=== PATIENT | male | born 1975 | race Caucasian/White ===

== ENCOUNTER 2020-11-23 20:01 | Inpatient (IN) | payer BC ==
[2020-11-23] MEDS ORDERED: ACETAMINOPHEN TAB 500 MG TAB PO STA (20:23)
[2020-11-23] MEDS: SODIUM CHLORIDE 0.9% 500 ML 500 ML IV SCH ×2 (20:33→21:15)
--- NOTE | 2020-11-23 20:33 | ED ---
SOB HPI - General Chief Complaint: Shortness of Breath Stated Complaint: pneumonia-sent by [facility] Time Seen by Provider: 11/23/20 20:08 Source: patient Mode of arrival: ambulatory Limitations: no limitations - History of Present Illness Initial Comments: Is a 45-year-old male with no past medical history who presents emergency department for fevers and shortness of breath. Patient states that he started having some symptoms of upper respiratory infection such as sore throat and headache on April 10. He states that approximately one week later he developed some shortness of breath. He is also had intermittent episodes of nausea, vomiting, and diarrhea. He went to the [facility] one week ago who checked him for cold it with a rapid test and also a PCR. He states that both of these were negative. He was started on steroids at that time. He states that over the last 2 days he's noticed fevers at home and continue shortness of breath. He went back to [facility] who did an x-ray he was told he had pneumonia and he was directed to the emergency department. The patient admits to a little bit of dysuria and frequency. He denies any abdominal pain. He admits to mild headache and neck discomfort however no stiffness. He states he also has backaches intermittently. He denies any rashes. No other acute complaints. - Related Data Home Medications Medication Instructions Recorded Confirmed Albuterol Inhaler [Ventolin Hfa 1 - 2 puff INHALATION RT-Q4H PRN 11/23/20 11/23/20 Inhaler] methylPREDNISolone [Medrol Dose See Taper PO DAILY 11/23/20 11/23/20 Pack] Allergies Allergy/AdvReac Type Severity Reaction Status Date / Time Milk Containing Products Allergy Nausea & Verified 11/23/20 21:04 [Dairy] Vomiting Review of Systems ROS Statement: Those systems with pertinent positive or pertinent negative responses have been documented in the HPI. ROS Other: All systems not noted in ROS Statement are negative. Past Medical History Past Medical History: No Reported History History of Any Multi-Drug Resistant Organisms: None Reported Past Surgical History: No Surgical Hx Reported Past Psychological History: No Psychological Hx Reported Smoking Status: Never smoker Past Alcohol Use History: None Reported Past Drug Use History: None Reported General Exam - General Exam Comments Initial Comments: Constitutional: Awake alert Appears comfortable Head: Normocephalic atraumatic Eyes: no conjunctival injection No scleral icterus EOMI Neck: No JVD Supple Heart: Regular rate rhythm normal S1-S2 no murmurs Lungs: Clear to auscultation bilaterally No wheezing No rales, diminished at the bases Abdomen: Soft nondistended nontender Extremities: Non edematous DP pulses intact Radial pulses intact Neuro: A&Ox3 No focal neurologic deficits Psych: Appropriate mood and affect Limitations: no limitations Course Vital Signs 11/23/20 11/23/20 11/23/20 20:02 20:15 21:06 Temperature 102.3 F H Pulse Rate 99 85 Respiratory 20 20 18 Rate Blood Pressure 120/74 116/82 O2 Sat by Pulse 99 Oximetry 11/23/20 11/23/20 21:42 22:09 Temperature 99.9 F H Pulse Rate 67 Respiratory 16 Rate Blood Pressure 108/68 O2 Sat by Pulse 98 Oximetry - Reevaluation(s) Reevaluation #1: EKG showing normal sinus rhythm with a rate of 92. This no abnormal ST 7 changes or T-wave inversions. QTC is 417. Other intervals normal. No ectopy. 11/23/20 20:34 Medical Decision Making - Medical Decision Making Is a 45-year-old male who presents emergency department for worsening dyspnea and fever. Patient was febrile on arrival. The patient was given 1 L of IV fluids and Tylenol. He had a full workup performed that did show some lymphopenia, elevation his LDH and CRP. D-dimer was elevated and thus a CT angiography was performed that did not show evidence for PE however did show bilateral groundglass opacities consistent with pneumonia. The patient did have a negative covert swab about one week ago however I did re-swab him for Covid. I started him on steroids and antibiotics. Going to admit the patient to the hospital due to evidence for sepsis from pneumonia. Repeat lactic will be performed. Attempted to get ahold of Dr. Potter and unable to. Spoke with Dr. Mann who accepts the admission. - Lab Data Result diagrams: 11/23/20 20:30 11/23/20 20:30 Lab Results 11/23/20 11/23/20 11/23/20 Range/Units 20:30 20:30 20:30 WBC 12.6 H (3.8-10.6) k/uL RBC 4.95 (4.30-5.90) m/uL Hgb 14.5 (13.0-17.5) gm/dL Hct 40.5 (39.0-53.0) % MCV 81.8 (80.0-100.0) fL MCH 29.4 (25.0-35.0) pg MCHC 35.9 (31.0-37.0) g/dL RDW 12.3 (11.5-15.5) % Plt Count 306 (150-450) k/uL MPV 8.1 Neutrophils % 87 % Lymphocytes % 2 % Monocytes % 7 % Eosinophils % 1 % Basophils % 3 % Neutrophils # 10.9 H (1.3-7.7) k/uL Lymphocytes # 0.3 L (1.0-4.8) k/uL Monocytes # 0.9 (0-1.0) k/uL Eosinophils # 0.1 (0-0.7) k/uL Basophils # 0.4 H (0-0.2) k/uL PT 10.9 (9.0-12.0) sec INR 1.0 (<1.2) APTT 26.0 (22.0-30.0) sec D-Dimer 1.77 H (<0.60) mg/L FEU Sodium 128 L (137-145) mmol/L Potassium 4.2 (3.5-5.1) mmol/L Chloride 96 L (98-107) mmol/L Carbon Dioxide 23 (22-30) mmol/L Anion Gap 9 mmol/L BUN 13 (9-20) mg/dL Creatinine 0.80 (0.66-1.25) mg/dL Est GFR (CKD-EPI)AfAm >90 (>60 ml/min/1.73 sqM) Est GFR (CKD-EPI)NonAf >90 (>60 ml/min/1.73 sqM) Glucose 135 H (74-99) mg/dL Plasma Lactic Acid Bryon (0.7-2.0) mmol/L Calcium 8.5 (8.4-10.2) mg/dL Total Bilirubin 0.9 (0.2-1.3) mg/dL AST 38 (17-59) U/L ALT 27 (4-49) U/L Alkaline Phosphatase 50 (38-126) U/L Lactate Dehydrogenase 658 H (313-618) U/L C-Reactive Protein 52.4 H (<10.0) mg/L Total Protein 6.7 (6.3-8.2) g/dL Albumin 3.8 (3.5-5.0) g/dL 11/23/20 Range/Units 20:30 WBC (3.8-10.6) k/uL RBC (4.30-5.90) m/uL Hgb (13.0-17.5) gm/dL Hct (39.0-53.0) % MCV (80.0-100.0) fL MCH (25.0-35.0) pg MCHC (31.0-37.0) g/dL RDW (11.5-15.5) % Plt Count (150-450) k/uL MPV Neutrophils % % Lymphocytes % % Monocytes % % Eosinophils % % Basophils % % Neutrophils # (1.3-7.7) k/uL Lymphocytes # (1.0-4.8) k/uL Monocytes # (0-1.0) k/uL Eosinophils # (0-0.7) k/uL Basophils # (0-0.2) k/uL PT (9.0-12.0) sec INR (<1.2) APTT (22.0-30.0) sec D-Dimer (<0.60) mg/L FEU Sodium (137-145) mmol/L Potassium (3.5-5.1) mmol/L Chloride (98-107) mmol/L Carbon Dioxide (22-30) mmol/L Anion Gap mmol/L BUN (9-20) mg/dL Creatinine (0.66-1.25) mg/dL Est GFR (CKD-EPI)AfAm (>60 ml/min/1.73 sqM) Est GFR (CKD-EPI)NonAf (>60 ml/min/1.73 sqM) Glucose (74-99) mg/dL Plasma Lactic Acid Bryon 2.6 H* (0.7-2.0) mmol/L Calcium (8.4-10.2) mg/dL Total Bilirubin (0.2-1.3) mg/dL AST (17-59) U/L ALT (4-49) U/L Alkaline Phosphatase (38-126) U/L Lactate Dehydrogenase (313-618) U/L C-Reactive Protein (<10.0) mg/L Total Protein (6.3-8.2) g/dL Albumin (3.5-5.0) g/dL Disposition Clinical Impression: Sepsis, Pneumonia Disposition: ADMITTED IP TO THIS HOSP Condition: Stable Referrals: None,Stated [Primary Care Provider] - 1-2 days Decision to Admit Reason: Admit from [facility]
[2020-11-23 20:51] LABS: Basophils # (A) 0.4 k/uL (0-0.2); Basophils % (A) 3 %; Eosinophils # (A) 0.1 k/uL (0-0.7); Eosinophils % (A) 1 %; HCT 40.5 % (39.0-53.0); HGB 14.5 gm/dL (13.0-17.5); Lymphocytes # (A) 0.3 k/uL (1.0-4.8); Lymphocytes % (A) 2 %; MCH 29.4 pg (25.0-35.0); MCHC 35.9 g/dL (31.0-37.0); MCV 81.8 fL (80.0-100.0); Mean Platelet Volume 8.1; Monocytes # (A) 0.9 k/uL (0-1.0); Monocytes % (A) 7 %; Neutrophils # (A) 10.9 k/uL (1.3-7.7); Neutrophils % (A) 87 %; Platelet Count 306 k/uL (150-450); RBC 4.95 m/uL (4.30-5.90); RDW 12.3 % (11.5-15.5); WBC 12.6 k/uL (3.8-10.6)
--- NOTE | 2020-11-23 21:05 | XR ---
EXAMINATION TYPE: XR chest 1V portable DATE OF EXAM: 11/23/2020 COMPARISON: Today HISTORY: Fever TECHNIQUE: 2 views portable FINDINGS: Heart and mediastinum are normal. Lungs are clear of consolidation. There are no hilar mass es. There are are chest leads. Bony thorax is intact. There is no sign of pleural effusion. IMPRESSION: No active cardiopulmonary disease. Minimal nodular densities in the left upper lobe proba adonis from granulomatous disease. No change compared to outside exam.
[2020-11-23 21:08] LABS: ALT 27 U/L (4-49); AST 38 U/L (17-59); African American GFR (CKD) >90 (>60 ml/min/1.73 sqM); Albumin 3.8 g/dL (3.5-5.0); Alkaline Phosphatase 50 U/L (38-126); Anion Gap 9 mmol/L; Blood Urea Nitrogen 13 mg/dL (9-20); C Reactive Protein 52.4 mg/L (<10.0); Calcium 8.5 mg/dL (8.4-10.2); Carbon Dioxide 23 mmol/L (22-30); Chloride 96 mmol/L (98-107); Glucose 135 mg/dL (74-99); LDH 658 U/L (313-618); Non-African American GFR(CKD) >90 (>60 ml/min/1.73 sqM); Potassium 4.2 mmol/L (3.5-5.1); Sodium 128 mmol/L (137-145); Total Bilirubin 0.9 mg/dL (0.2-1.3); Total Protein 6.7 g/dL (6.3-8.2)
[2020-11-23 21:10] LABS: Prothrombin Time 10.9 sec (9.0-12.0)
[2020-11-23 21:15] LABS: D-Dimer 1.77 mg/L FEU (<0.60)
[2020-11-23] MEDS ORDERED: DEXAMETHASONE SOD PHOSPHATE 10 MG/ML 1 ML VIAL IV STA (21:38)
--- NOTE | 2020-11-23 21:47 | CT ---
EXAMINATION TYPE: CT angio chest DATE OF EXAM: 11/23/2020 COMPARISON: None HISTORY: Dyspnea and elevated d-dimer. CT DLP: 498 mGycm Automated exposure control for dose reduction was used. CONTRAST: Performed with IV Contrast, patient injected with 84ml mL of Isovue 370. There are 3-D post processed images. There is some patchy groundglass interstitial infiltrate in the mid and lower lung rojas. There is n o mediastinal adenopathy. There are no hilar masses. There are a few bilateral bronchial lymph nodes that measure less than 1 cm. Thoracic aorta is intact. There is no evidence of aneurysm or dissection . There is no evidence of filling defect in the pulmonary arteries. The thoracic spine is intact. Dow um is intact. IMPRESSION: No evidence of pulmonary embolism. Patchy groundglass pulmonary interstitial infiltrates consistent w ith pneumonia.
[2020-11-23] MEDS ORDERED: AZITHROMYCIN 500 MG in SODIUM CHLORIDE 0.9% 250 ML IVPB ONE (22:00)
[2020-11-23] MEDS ORDERED: cefTRIAXone IN SWFI 1,000 MG/10 ML SYRINGE IVP ONE (22:00)
[2020-11-23] MEDS: SODIUM CHLORIDE 0.9% 1,000 ML IV SCH (22:15)
[2020-11-23] MEDS ORDERED: NALOXONE 0.4 MG/ML 1 ML VIAL IV PRN (22:32)
[2020-11-23] MEDS ORDERED: ALBUTEROL HFA INHALER INHALATION PRN (23:59)
[2020-11-24] MEDS ORDERED: ACETAMINOPHEN TAB 325 MG TAB PO PRN
--- NOTE | 2020-11-24 03:40 | P.HPIM ---
History of Present Illness H&P Date: 11/23/20 Chief Complaint: shortness of breath 45 year old male with no significant past medical history patient comes in due to worsening shortness of breath and fever. patient reports symptoms starting 2 weeks ago , as sore throat and body aches, he suspected viral illness, eventually was tested for COVID but returned negative. he continued to experience those symptoms along with GI upset and occasional diarrhea and vomiting, his and kids are feeling fine though. except for his youngest 7 months old who experienced low grade fever for 1 day. The urgent care clinic did give him medrol dose pack that he has only 1 pill left. Then about 7 days into his symptoms he started experiencing shortness of breath, which was progressive, associated with productive cough, and eventually over past two days, he was having fevers. he went back to the urgent care, and was to ld to go to the hospital due to suspected pneumonia in our ED, he was found to have elevated D dimer, LDH and CRP. leukocytosis , and CXR was unremarkable CTA of chest performed due to elevated d dimer, and was found to have bilateral patchy ground glass appearance over mid and lower lung , no acute PE Review of Systems Pertinent positives as noted in HPI. All other systems were reviewed and are negative Past Medical History Past Medical History: No Reported History History of Any Multi-Drug Resistant Organisms: None Reported Past Surgical History: No Surgical Hx Reported Past Anesthesia/Blood Transfusion Reactions: No Reported Reaction Past Psychological History: No Psychological Hx Reported Smoking Status: Never smoker Past Alcohol Use History: None Reported Past Drug Use History: None Reported - Past Family History family Family Medical History: No Reported History Medications and Allergies Home Medications Medication Instructions Recorded Confirmed Type Albuterol Inhaler [Ventolin Hfa 1 - 2 puff INHALATION RT-Q4H PRN 11/23/20 11/23/20 History Inhaler] methylPREDNISolone [Medrol Dose See Taper PO DAILY 11/23/20 11/23/20 History Pack] Allergies Allergy/AdvReac Type Severity Reaction Status Date / Time Milk Containing Products Allergy Nausea & Verified 11/23/20 21:04 [Dairy] Vomiting Physical Exam Vitals: Vital Signs Temp Pulse Pulse Resp BP BP Pulse Ox 11/24/20 02:00 98.3 F 71 18 107/71 96 11/23/20 22:48 75 18 100/65 96 11/23/20 22:09 67 16 108/68 98 11/23/20 21:42 99.9 F H 11/23/20 21:06 85 18 116/82 11/23/20 20:15 20 11/23/20 20:02 102.3 F H 99 20 120/74 99 Intake and Output 11/23/20 11/23/20 11/24/20 14:59 22:59 06:59 Other: Voiding Method Toilet Weight 102.058 kg 102.058 kg Constitutional: No acute distress, conversant, pleasant Eyes: Anicteric sclerae, moist conjunctiva, Pupils equal round reactive to light ENMT: NC/AT Oropharynx clear, no erythema, or exudates Neck: Supple, FROM, no masses, or JVD No carotid bruits No thyromegaly Lungs: Clear to auscultation Clear to percussion Normal respiratory effort, no accessory muscle use Cardiovascular: Heart regular in rate and rhythm, No murmurs, gallops, or rubs No peripheral edema Abdominal: Soft Nontender, no guarding, rebound or rigidity Abdomen moving with respiration Normoactive bowel sounds No hepatomegaly, No splenomegaly No palpable mass No abdominal wall hernia noted Skin: Normal temperature, tone, texture, turgor No induration No subcutaneous nodules No rash, lesions No ulcers Extremities: No digital cyanosis No clubbing Pedal pulses intact and symmetrical Radial pulses intact and symmetrical No calf tenderness Psychiatric: Alert and oriented to person, place and time Appropriate affect fair judgement Neuro Muscles Strength 5/5 in all 4 extremities Sensation to light touch grossly present throughout Cranial nerves II-XII grossly intact No focal sensory deficits Lymphatics: no palpable cervical or supraclavicular , or inguinal lymph nodes Results CBC & Chem 7: 11/23/20 20:30 11/23/20 20:30 Labs: Abnormal Lab Results - Last 24 Hours (Table) 11/23/20 11/23/20 11/23/20 Range/Units 20:30 20:30 20:30 WBC 12.6 H (3.8-10.6) k/uL Neutrophils # 10.9 H (1.3-7.7) k/uL Lymphocytes # 0.3 L (1.0-4.8) k/uL Basophils # 0.4 H (0-0.2) k/uL D-Dimer 1.77 H (<0.60) mg/L FEU Sodium 128 L (137-145) mmol/L Chloride 96 L (98-107) mmol/L Glucose 135 H (74-99) mg/dL Plasma Lactic Acid Bryon (0.7-2.0) mmol/L Lactate Dehydrogenase 658 H (313-618) U/L C-Reactive Protein 52.4 H (<10.0) mg/L Coronavirus (PCR) (Not Detectd) 11/23/20 11/23/20 Range/Units 20:30 21:48 WBC (3.8-10.6) k/uL Neutrophils # (1.3-7.7) k/uL Lymphocytes # (1.0-4.8) k/uL Basophils # (0-0.2) k/uL D-Dimer (<0.60) mg/L FEU Sodium (137-145) mmol/L Chloride (98-107) mmol/L Glucose (74-99) mg/dL Plasma Lactic Acid Bryon 2.6 H* (0.7-2.0) mmol/L Lactate Dehydrogenase (313-618) U/L C-Reactive Protein (<10.0) mg/L Coronavirus (PCR) Detected A (Not Detectd) Thrombosis Risk Factor Assmnt - Choose All That Apply Each Factor Represents 1 point: Age 41-60 years, Obesity (BMI >25) Thrombosis Risk Factor Assessment Total Risk Factor Score: 2 Thrombosis Risk Factor Assessment Level: Low Risk Assessment and Plan Assessment: sepsis COVID pneumonitis shortness of breath lactic acidosis hyponatremia 2/2 dehydration plan IVF hydration with normal saline supportive care tylenol for fever, body aches follow up lactic acid follow up BMP supplemental oxygen as needed zinc, vitamin D patient received one dose of antibiotics in the ED, and one time dose of decadrone in the ED PRN inhaler CODE STATUS:full code DVT prophylaxis: heaprin sc tid Discussed with: Patient, ER, RN Anticipated length of stay > than [address]: home A total of 70 minutes was spent on the care of this complex patient more than 50% of the time was spent in counseling and care coordination.
[2020-11-24] MEDS: ZINC SULFATE 220 MG CAP PO SCH (08:33)
[2020-11-24] MEDS: CHOLECALCIFEROL 10 MCG (400 IU) TABLET PO SCH (08:33)
[2020-11-24 09:03] LABS: Ferritin 466.6 ng/mL (22.0-322.0)
[2020-11-24 09:22] LABS: African American GFR (CKD) 125.9 (60.0-200.0); Anion Gap 7.6 mmol/L (4.00-12.00); BUN/Creat Ratio 16.25 Ratio (12.00-20.00); Calcium 8.3 mg/dL (8.7-10.3); Carbon Dioxide 27.4 mmol/L (21.6-31.8); Non-African American GFR(CKD) 108.6 (60.0-200.0); Potassium 4.9 mmol/L (3.5-5.5)
[2020-11-24] MEDS ORDERED: IOPAMIDOL CONTRAST (ORAL USE) VIAL PO PRN (10:16)
[2020-11-24] MEDS ORDERED: ENOXAPARIN 40 MG/0.4 ML SYRINGE SQ STA (10:17)
--- NOTE | 2020-11-24 10:31 | P.PN ---
<Gabriel Glover - Last Filed: 11/24/20 10:39> Subjective Progress Note Date: 11/24/20 Principal diagnosis: Acute Respiratory Failure with Hypoxia secondary to COVID 19 virus infection with pneumonitis History of presenting illness: Patient is a 45-year-old male with no known past medical history who presented to [facility] on 11/23/20 for reports of worsening shortness of breath and fever beginning approximately 2 weeks ago and progressively worsening. Patient was seen and fully evaluated in the emergency department where he was found to test positive for Covid 19 virus infection and have an elevated d-dimer of 1.77, elevated LDH of 658, CRP 52.4, and WBC count of 12.8. X-ray was completed showing no acute cardiopulmonary process. CTA was obtained negative for acute PE, but positive for bilateral patchy groundglass opacities over mid and lower lung. 11/24/20-Patient seen and fully evaluated at the bedside. Reports previously reported shortness of breath is slightly better since arrival in ED last night. Respirations are even, regular, and unlabored on room air. Resting SpO2 has decreased from 99% to 93% this morning. BMP revealing resolution of hyponatremia with sodium 138. Patient reports he continues to have a coarse dry cough, chills and awoke last night with significant diaphoresis. He continues to have no appetite and feels nauseous with patient in his right lower quadrant anytime after eating. Physical exam: General: non toxic, no distress, appears at stated age Derm: warm, dry Head: atraumatic, normocephalic, symmetric Eyes: EOMI, no lid lag, anicteric sclera Mouth: no lip lesion, mucus membranes moist Cardiovascular: S1S2 reg, no murmur, positive posterior tibial pulse bilateral, Lungs: Respirations even, regular, and unlabored on room air. SpO2 93% on room air. CTA bilateral, no rhonchi, no rales , no accessory muscle use Abdominal: soft, nontender to palpation, no guarding, no appreciable organomegaly Ext: no gross muscle atrophy, no edema, no contractures Neuro: CN II-XI grossly intact, no focal neuro deficits Psych: Alert, oriented, appropriate affect Plan of care: Acute respiratory failure with hypoxia secondary to Covid 19 virus infection with pneumonitis -Patient has had decline in oxygen saturation since arrival upon admission patient was 99% on room air this morning the patient 93% on room air, and instructed to place patient on 2 L O2 and obtain an ambulatory pulse oximetry at this time. -Decadron 6 mg daily -Continuation of zinc, vitamin C, vitamin D, and melatonin. -Oxygenation to be administered as needed to maintain SpO2 equal to or greater than 92% at all times. -Incentive spirometry -Repeat a.m. labs including magnesium, LDH, ferritin, CBC, CMP, and CRP -DVT prophylaxis with Lovenox 40 mg subcu daily Right lower quadrant Abdominal Pain -CT abdomen and pelvis with oral and IV contrast -Start patient on Pepcid 40 mg daily. -Symptomatic care and pain management Hyponatremia resulting from dehydration, resolved -Hyponatremia with sodium 128 upon arrival. -Patient received 1 L bolus followed by 0.9% normal saline maintenance infusion at 100 mph. Morning sodium 138. -We will continue with gentle hydration, decrease 0.9% normal saline infusion to 50 mL per hour and obtain a repeat BMP at 3 PM this afternoon. CODE STATUS: Full code DVT prophylaxis: Lovenox Discussed with: Patient and RN Anticipated discharge date: 1-[address]: Home A total of 35 minutes was spent on the care of this complex patient more than 50% of the time was spent in counseling and care coordination. Objective - Vital Signs Vital signs: Vital Signs Temp 97.7 F 11/24/20 05:26 Pulse 53 L 11/24/20 07:05 Resp 18 11/24/20 07:05 BP 109/74 11/24/20 05:26 Pulse Ox 93 L 11/24/20 05:26 Intake & Output 11/23/20 11/24/20 11/24/20 18:59 06:59 18:59 Weight 102.058 kg Other: Voiding Method Toilet Toilet # Voids 1 1 - Labs CBC & Chem 7: 11/23/20 20:30 11/24/20 05:22 Labs: Abnormal Lab Results - Last 24 Hours (Table) 11/23/20 11/23/20 11/23/20 Range/Units 20:30 20:30 20:30 WBC 12.6 H (3.8-10.6) k/uL Neutrophils # 10.9 H (1.3-7.7) k/uL Lymphocytes # 0.3 L (1.0-4.8) k/uL Basophils # 0.4 H (0-0.2) k/uL D-Dimer 1.77 H (<0.60) mg/L FEU Sodium 128 L (137-145) mmol/L Chloride 96 L (98-107) mmol/L Glucose 135 H (74-99) mg/dL Plasma Lactic Acid Bryon (0.7-2.0) mmol/L Ferritin 466.6 H (22.0-322.0) ng/mL Lactate Dehydrogenase 658 H (313-618) U/L C-Reactive Protein 52.4 H (<10.0) mg/L Coronavirus (PCR) (Not Detectd) 11/23/20 11/23/20 Range/Units 20:30 21:48 WBC (3.8-10.6) k/uL Neutrophils # (1.3-7.7) k/uL Lymphocytes # (1.0-4.8) k/uL Basophils # (0-0.2) k/uL D-Dimer (<0.60) mg/L FEU Sodium (137-145) mmol/L Chloride (98-107) mmol/L Glucose (74-99) mg/dL Plasma Lactic Acid Bryon 2.6 H* (0.7-2.0) mmol/L Ferritin (22.0-322.0) ng/mL Lactate Dehydrogenase (313-618) U/L C-Reactive Protein (<10.0) mg/L Coronavirus (PCR) Detected A (Not Detectd) <Esperanza Ron - Last Filed: 11/24/20 10:52> Subjective Patient seen and examined independently. Patient was also seen by Gabriel Golver NP and case was discussed. I am in agreement with subjective, physical exam, assessment and plan as written above and amended below. Patient seen and examined at bedside. He reports he continues to have some chest discomfort with deep inspiration and shortness of breath along with a cough. He complains of right lower quadrant abdominal pain. He states he has been experiencing this right lower quadrant abdominal pain for 2 weeks prior to his URI symptoms. He reports that he has had a poor appetite and he has abdominal pain and nausea every time he eats. General: non toxic, no distress, appears at stated age Derm: warm, dry Head: atraumatic, normocephalic, symmetric Eyes: EOMI, no lid lag, anicteric sclera Mouth: no lip lesion, mucus membranes moist Cardiovascular: S1S2 reg, no murmur, positive posterior tibial pulse bilateral, Lungs: Course bs bilateral, no rhonchi, no rales , no accessory muscle use Abdominal: soft, nontender to palpation, no guarding, no appreciable organomegaly Ext: no gross muscle atrophy, no edema, no contractures Neuro: CN II-XI grossly intact, no focal neuro deficits Psych: Alert, oriented, appropriate affect Additional DX: Sepsis secondary to COVID 19 - IVF - Treatment as above. Lactic acidosis, Resolved Objective - Vital Signs Vital signs: Vital Signs Temp 98.2 F 11/24/20 09:47 Pulse 62 11/24/20 09:47 Resp 18 11/24/20 09:47 BP 105/69 11/24/20 09:47 Pulse Ox 94 L 11/24/20 09:47 Intake & Output 11/23/20 11/24/20 11/24/20 18:59 06:59 18:59 Weight 102.058 kg Other: Voiding Method Toilet Toilet # Voids 1 1 - Labs CBC & Chem 7: 11/23/20 20:30 11/24/20 05:22 Labs: Abnormal Lab Results - Last 24 Hours (Table) 11/23/20 11/23/20 11/23/20 Range/Units 20:30 20:30 20:30 WBC 12.6 H (3.8-10.6) k/uL Neutrophils # 10.9 H (1.3-7.7) k/uL Lymphocytes # 0.3 L (1.0-4.8) k/uL Basophils # 0.4 H (0-0.2) k/uL D-Dimer 1.77 H (<0.60) mg/L FEU Sodium 128 L (137-145) mmol/L Chloride 96 L (98-107) mmol/L Glucose 135 H (74-99) mg/dL Plasma Lactic Acid Bryon (0.7-2.0) mmol/L Calcium (8.7-10.3) mg/dL Ferritin 466.6 H (22.0-322.0) ng/mL Lactate Dehydrogenase 658 H (313-618) U/L C-Reactive Protein 52.4 H (<10.0) mg/L Coronavirus (PCR) (Not Detectd) 11/23/20 11/23/20 11/24/20 Range/Units 20:30 21:48 05:22 WBC (3.8-10.6) k/uL Neutrophils # (1.3-7.7) k/uL Lymphocytes # (1.0-4.8) k/uL Basophils # (0-0.2) k/uL D-Dimer (<0.60) mg/L FEU Sodium (137-145) mmol/L Chloride (98-107) mmol/L Glucose 147 H (74-99) mg/dL Plasma Lactic Acid Bryon 2.6 H* (0.7-2.0) mmol/L Calcium 8.3 L (8.7-10.3) mg/dL Ferritin (22.0-322.0) ng/mL Lactate Dehydrogenase (313-618) U/L C-Reactive Protein (<10.0) mg/L Coronavirus (PCR) Detected A (Not Detectd)
[2020-11-24] MEDS: ASCORBIC ACID 500 MG TAB PO SCH (10:38)
[2020-11-24] MEDS: dexAMETHasone 2 MG TAB PO SCH (10:39)
[2020-11-24] MEDS: IOPAMIDOL CONTRAST (ORAL USE) VIAL PO PRN ×2 (10:48→12:05)
[2020-11-24] MEDS: SODIUM CHLORIDE 0.9% 1,000 ML IV SCH ×3 (12:21→20:49)
[2020-11-24] MEDS: FAMOTIDINE 20 MG TAB PO SCH (13:16)
--- NOTE | 2020-11-24 13:47 | CT ---
EXAMINATION TYPE: CT abdomen pelvis w con DATE OF EXAM: 11/24/2020 COMPARISON: None HISTORY: Pain, COVID, and nausea CT DLP: 1414.2 mGycm CONTRAST: CT scan of the abdomen and pelvis is performed with Oral Contrast and with IV Contrast, patient injec tushar with 100 mL of Isovue 300. FINDINGS: LUNG BASES-: No visible nodule. Patchy basilar infiltrates are noted compatible with patient's histor y of Covid. LIVER/GB: No calcified gallstones. No space occupying hepatic lesion. Biliary tree is of normal ca liber. PANCREAS: No inflammation. No distinct mass. SPLEEN: No splenic enlargement. No lesion seen. ADRENALS: No nodule. No thickening. KIDNEYS/BLADDER: No hydronephrosis. No nephrolithiasis. No distinct renal mass. Urinary bladder g rossly unremarkable. BOWEL: Normal appendix. Normal bowel caliber. No inflammation. GENITAL ORGANS: No gross abnormality. LYMPH NODES: No greater than 1cm abdominal or pelvic lymph nodes are appreciated. AORTA: No significant abnormality. OSSEOUS STRUCTURES: No significant abnormality is seen. OTHER: No significant additional abnormality is seen. IMPRESSION: 1. No acute intra-abdominal process seen. 2. Basilar changes of Covid 19 pneumonia.
[2020-11-24] MEDS ORDERED: MELATONIN 5 MG TABLET PO SCH (21:00)
[2020-11-25 01:54] LABS: Anion Gap 8.1 mmol/L (4.00-12.00); BUN/Creat Ratio 21.43 Ratio (12.00-20.00); Calcium 8.2 mg/dL (8.7-10.3); Carbon Dioxide 25.9 mmol/L (21.6-31.8); Non-African American GFR(CKD) 114.8 (60.0-200.0); Potassium 4.6 mmol/L (3.5-5.5)
[2020-11-25] MEDS: SODIUM CHLORIDE 0.9% 1,000 ML IV SCH ×2 (05:51→07:09)
[2020-11-25 06:40] LABS: Basophils # (A) 0.1 k/uL (0-0.2); Basophils % (A) 0 %; Eosinophils % (A) 0 %; HCT 40.1 % (39.0-53.0); HGB 13.6 gm/dL (13.0-17.5); Lymphocytes % (A) 7 %; MCH 28.8 pg (25.0-35.0); MCHC 33.9 g/dL (31.0-37.0); MCV 84.9 fL (80.0-100.0); Mean Platelet Volume 8.3; Monocytes # (A) 1.1 k/uL (0-1.0); Monocytes % (A) 7 %; Neutrophils # (A) 13.5 k/uL (1.3-7.7); Neutrophils % (A) 85 %; Platelet Count 354 k/uL (150-450); RBC 4.73 m/uL (4.30-5.90); RDW 12.4 % (11.5-15.5); WBC 15.9 k/uL (3.8-10.6)
[2020-11-25] MEDS: FAMOTIDINE 20 MG TAB PO SCH (07:45)
[2020-11-25] MEDS: ZINC SULFATE 220 MG CAP PO SCH (07:45)
[2020-11-25] MEDS: CHOLECALCIFEROL 10 MCG (400 IU) TABLET PO SCH (07:46)
[2020-11-25] MEDS: dexAMETHasone 2 MG TAB PO SCH (07:46)
[2020-11-25] MEDS: ASCORBIC ACID 500 MG TAB PO SCH (07:46)
[2020-11-25 10:01] VITALS: BP 113/71; PULSE 70; RESP 18; TEMP 98.1
[2020-11-25 10:17] LABS: C Reactive Protein 2.6 mg/dL (0.0-0.8); Magnesium 2.1 mg/dL (1.5-2.4)
[2020-11-25 10:53] LABS: Ferritin 506.2 ng/mL (22.0-322.0)
--- NOTE | 2020-11-25 11:16 | P.DS ---
Providers Date of admission: 11/23/20 22:32 Expected date of discharge: 11/25/20 Attending physician: Britany Mann MD Primary care physician: Avani Montes [facility] Course: Hospital Course: Patient is a 45-year-old male with no known past medical history who presented to [facility] on 11/23/20 for reports of worsening shortness of breath and fever beginning approximately 2 weeks ago and progressively worsening. Patient was seen and fully evaluated in the emergency department where he was found to test positive for Covid 19 virus infection and admitted for gentle hydration, steroids and was placed on zinc, vitamin C, vitamin D, and melatonin. During his stay patient also reported having pain in his right lower quadrant pain upon eating, the CT abdomen and pelvis with IV and oral contrast was obtained and was negative for acute process. Patient was placed on Pepcid 40 mg daily and this pain was reported to improve. Discharge Diagnosis: Acute respiratory failure with hypoxia secondary to Covid 19 virus infection with pneumonitis -COVID positive on 11/23/20. -X-rays negative for acute cardiopulmonary process. -D-dimer 1.77, CT PE negative for acute PE revealing bilateral patchy groundglass opacities over mid and lower lung. -CRP improving from 52.4 down to 2.6 and LDH of 658 now 266. -Decadron 6 mg daily for 8 more days. -Continuation of zinc, vitamin C, vitamin D, and melatonin. Leukocytosis, likely reactive secondary to steroid use. Right lower quadrant Abdominal Pain upon eating, improved -CT abdomen and pelvis with oral and IV contrast negative for acute process. -Continue Pepcid 40 mg daily. Hyponatremia resulting from dehydration, resolved Physical exam: Patient was seen and fully evaluated at the bedside. Patient has remained afebrile for greater than 24 hours and is remained on room air with SpO2 never dropping below 93%. Ambulatrory pulse oximetry was obtained with patient remaining 95-97% room air. Patient reports dry cough remains but states significant improvement with shortness of breath and previously reported abdominal pain. Patient's condition is stable and he is being discharged home at this time and instructed to self quarantine for 8 more days and will continue oral medications Decadron, zinc, vitamin C, vitamin D, melatonin, and Pepcid. General: non toxic, no distress, appears at stated age Derm: warm, dry Head: atraumatic, normocephalic, symmetric Eyes: EOMI, no lid lag, anicteric sclera Mouth: no lip lesion, mucus membranes moist Cardiovascular: S1S2 reg, no murmur, positive posterior tibial pulse bilateral, Lungs: Respirations even, regular, and unlabored on room air. SpO2 93% on room air. CTA bilateral, no rhonchi, no rales , no accessory muscle use Abdominal: soft, nontender to palpation, no guarding, no appreciable organomegaly Ext: no gross muscle atrophy, no edema, no contractures Neuro: CN II-XI grossly intact, no focal neuro deficits Psych: Alert, oriented, appropriate affect A total of 45 minutes of time were spent preparing this complex discharge summary. Patient Condition at Discharge: Stable Plan - Discharge Summary Discharge Rx Participant: Yes New Discharge Prescriptions: No Action Albuterol Inhaler [Ventolin Hfa Inhaler] 1 - 2 puff INHALATION RT-Q4H PRN PRN Reason: Shortness Of Breath methylPREDNISolone [Medrol Dose Pack] See Taper PO DAILY Discharge Medication List Albuterol Inhaler [Ventolin Hfa Inhaler] 1 - 2 puff INHALATION RT-Q4H PRN 11/23/20 [History] methylPREDNISolone [Medrol Dose Pack] See Taper PO DAILY 11/23/20 [History] Follow up Appointment(s)/Referral(s): None,Stated [REFERRING] - 1-2 days
== END 2020-11-25 12:39 | disposition home or self-care (01) | DRG 871 ==
LOC: EC 20:01 → 4SSUR 22:32
PROVIDERS: ADMIT Internal Medicine; ATTEND Internal Medicine
DX: A41.89 Other specified sepsis (principal); J12.82 Pneumonia due to coronavirus disease 2019; J96.01 Acute respiratory failure with hypoxia; U07.1 COVID-19; E87.1 Hypo-osmolality and hyponatremia; E87.2 Acidosis; R10.31 Right lower quadrant pain; D72.810 Lymphocytopenia; E86.0 Dehydration; T38.0X5A Adverse effect of glucocorticoids and synthetic analogues, initial encounter; Z91.011 Allergy to milk products
CPT/HCPCS: 71045; 71275; 74177; 80048; 80053; 82728; 83605; 83615; 83735; 84145; 85025; 85379; 85610; 85730; 86140; 87040; 87635; 93005; 96361; 96365; 96375; 99285